=== PATIENT | female | born 2000 | race Caucasian/White ===

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

== ENCOUNTER 2019-06-04 19:19 | Emergency (ER) | payer OTHER | END 2019-06-04 22:20 | disposition home or self-care (01) | LOC: JER 19:19 ==

== ENCOUNTER 2021-06-28 12:12 | Emergency (ER) | payer OTHER ==
[2021-06-28 12:22] VITALS: BMI 28.1
[2021-06-28] MEDS ORDERED: predniSONE 20 MG TABLET (UD) PO ONE (13:01)
[2021-06-28] MEDS ORDERED: predniSONE 20 MG TABLET (UD) ONE (13:05)
[2021-06-28] MEDS: ALBUTEROL SO4 2.5/IPRATROPIUM 0.5 INH SOL 3 ML VIAL.NEB. NEB SCH (13:14)
[2021-06-28 13:59] VITALS: BP 128/80; PULSE 116; TEMP 99.2
== END 2021-06-28 14:32 | disposition home or self-care (01) ==
LOC: JER 12:12
PROC: 3E0F7GC Introduction of Other Therapeutic Substance into Respiratory Tract, Via Natural or Artificial Opening (ICD-10-PCS; principal; 2021-06-28)
DX: J45.21 Mild intermittent asthma with (acute) exacerbation (principal)
CPT/HCPCS: 99284-25

== ENCOUNTER 2022-03-15 04:55 | Inpatient (IN) | payer OTHER ==
[2022-03-15] MEDS ORDERED: BUTORPHANOL TARTRATE 1 MG/ML VIAL IVPUSH ONE (20:11)
[2022-03-15] MEDS ORDERED: PROMETHAZINE HCL 25 MG/1 ML VIAL IVPUSH ONE (20:11)
[2022-03-15] MEDS ORDERED: OXYTOCIN 30 UNITS in 0.9% NS 30 UNIT/500 ML INFUS.BAG IVPB SCH (20:15)
[2022-03-15] MEDS ORDERED: DEXTROSE 5%-LACTATED RINGERS 1,000 ML IV SCH (20:15)
[2022-03-15] MEDS ORDERED: OXYTOCIN 30 UNITS in 0.9% NS 30 UNIT/500 ML INFUS.BAG IVPB ONE (20:42)
[2022-03-15 21:38] LABS: BASO % 0.2 % (0-2.0); EOS % 1.2 % (0-4.5); HEMOGLOBIN 10.8 GM/dL (10.7-15.3); LYMPH % 25.5 % (8-40); MCH 29.1 pg (25.7-33.7); MCHC 33.7 g/dl (32.0-36.0); MEAN CELL VOLUME 86.3 fl (80-96); MEAN PLT VOLUME 8.8 fl (7.5-11.1); MONO % 8.9 % (3.8-10.2); NEUT % 64.2 % (42.8-82.8); PLATELET COUNT 249 10^3/uL (134-434); RDW 15.1 % (11.6-15.6); WHITE BLOOD COUNT 6.9 K/mm3 (4.0-10.0)
[2022-03-15 21:42] LABS: INR 0.87 (0.83-1.09)
[2022-03-15 21:46] LABS: ACTIVATED PTT 28.5 SECONDS (25.2-36.5)
[2022-03-15 22:05] LABS: CALCIUM 8.7 mg/dL (8.5-10.1)
[2022-03-15 22:06] LABS: BLOOD UREA NITROGEN 12.4 mg/dL (7-18)
[2022-03-15 22:08] VITALS: BMI 32.5
[2022-03-15 22:09] LABS: CREATININE 0.6 mg/dL (0.55-1.3)
[2022-03-15] MEDS ORDERED: AMPICILLIN - 2 GM in SODIUM CHLORIDE 100 ML IVPB ONE (22:15)
[2022-03-15] MEDS ORDERED: AMPICILLIN SODIUM 2 GM VIAL ONE (22:22)
[2022-03-16] MEDS ORDERED: BUTORPHANOL TARTRATE 2 MG/ML VIAL ONE (00:12)
[2022-03-16] MEDS ORDERED: PROMETHAZINE HCL 25 MG/1 ML VIAL ONE (00:12)
[2022-03-16] MEDS ORDERED: OXYTOCIN 20 UNITS in 0.9% NS 20 UNIT/1,000 ML INFUS.BAG IV ONE (01:12)
[2022-03-16] MEDS ORDERED: LIDOCAINE HCL 1% PRESERVATIVE FREE - 30ML VIAL ONE (01:12)
[2022-03-16 01:47] LABS: HIV INTERPRETATION NEGATIVE (NEGATIVE)
[2022-03-16] MEDS ORDERED: AMPICILLIN SODIUM 1 GM VIAL ONE (01:49)
[2022-03-16] MEDS ORDERED: AMPICILLIN - 1 GM in SODIUM CHLORIDE 100 ML IVPB SCH (02:15)
[2022-03-16] MEDS ORDERED: oxyCODONE HCL 5 MG TABLET PO PRN (02:22)
[2022-03-16] MEDS ORDERED: METHYLERGONOVINE MALEATE 0.2 MG/1 ML AMP IM PRN (02:22)
[2022-03-16] MEDS ORDERED: BISACODYL 10 MG SUPP.RECT RC PRN (02:22)
[2022-03-16] MEDS ORDERED: ACETAMINOPHEN 325 MG TABLET (FP) PO PRN (02:22)
[2022-03-16] MEDS ORDERED: BENZOCAINE 28 GM HEMORRHOIDAL OINTMENT TP PRN (02:22)
[2022-03-16] MEDS ORDERED: BENZOCAINE 20% 57 GM BOTTLE TP PRN (02:22)
[2022-03-16] MEDS ORDERED: WITCH HAZEL 50% (TUCKS) 40 PAD/JAR PAD TP PRN (02:22)
[2022-03-16] MEDS ORDERED: OXYTOCIN 20 UNITS in 0.9% NS 20 UNIT/1,000 ML INFUS.BAG IV SCH (02:30)
[2022-03-16 03:09] LABS: CORD HCO3 20.7 mmHg (20-29); CORD PCO2 45.3 mmHg (30-78); CORD pH 7.278 (7.14-7.44)
[2022-03-16 03:11] LABS: CORD pH 7.172 (7.14-7.44)
[2022-03-16] MEDS: IBUPROFEN 600 MG TABLET (FP) PO PRN ×4 (05:30→23:40)
[2022-03-17] MEDS: IBUPROFEN 600 MG TABLET (FP) PO PRN ×2 (09:00→18:22)
[2022-03-17 09:23] LABS: BASO % 0.3 % (0-2.0); HEMATOCRIT 30.8 % (32.4-45.2); HEMOGLOBIN 10.6 GM/dL (10.7-15.3); MCH 29.6 pg (25.7-33.7); MCHC 34.4 g/dl (32.0-36.0); MEAN CELL VOLUME 86.2 fl (80-96); MEAN PLT VOLUME 8.3 fl (7.5-11.1); MONO % 6.6 % (3.8-10.2); NEUT % 64.1 % (42.8-82.8); PLATELET COUNT 234 10^3/uL (134-434); RBC 3.57 M/mm3 (3.60-5.2); RDW 15.3 % (11.6-15.6); WHITE BLOOD COUNT 8.6 K/mm3 (4.0-10.0)
[2022-03-17] MEDS ORDERED: SENNOSIDES/DOCUSATE COMBO (SENNA PLUS) TABLET (UD) PO PRN (22:00)
[2022-03-18] MEDS: IBUPROFEN 600 MG TABLET (FP) PO PRN (03:00)
[2022-03-18 12:02] VITALS: BP 105/67; PULSE 87; TEMP 98.6
== END 2022-03-18 13:39 | disposition home or self-care (01) | DRG 560 ==
LOC: JDEL 04:55 → JLDR 19:50 → J3W 03-16 04:20
PROVIDERS: ADMIT Obstetrics & Gynecology; ATTEND Obstetrics & Gynecology
PROC: 10E0XZZ Delivery of Products of Conception, External Approach (ICD-10-PCS; principal; 2022-03-16)
DX: O42.02 Full-term premature rupture of membranes, onset of labor within 24 hours of rupture (principal); O99.02 Anemia complicating childbirth; D64.9 Anemia, unspecified; Z3A.38 38 weeks gestation of pregnancy; Z37.0 Single live birth
CPT/HCPCS: 36415; 36600; 59409; 80048; 82803; 85025; 85610; 85730; 86762; 86780; 86850; 86900; 86901; 87340; 87389; C9803-CS; U0003; U0005